=== PATIENT | male | born 1935 | race African-American/Black ===

== ENCOUNTER 2018-10-24 10:27 | Inpatient (IN) | payer MEDICARE, OTHER ==
[~2018-10-24] VITALS: Ht 167.6 cm; Wt 59.1 kg
[2018-10-24] MEDS ORDERED: SODIUM CHLORIDE 0.9% 1,000 ML IV ONE (11:00)
[2018-10-24 11:15] LABS: BASOPHILS % 0.3 % (0.0-2.0); EOSINOPHILS % 0.8 % (0.0-5.0); HEMATOCRIT. 39.2 % (42.0-52.0); HEMOGLOBIN. 13.3 g/dL (14.0-18.0); LYMPHOCYTES % 15.4 % (20.0-50.0); MEAN CORPUSCULAR HEMOGLOBIN 33.3 pg (28.0-32.0); MEAN CORPUSCULAR VOLUME 97.9 fL (80.0-94.0); MEAN PLATELET VOLUME 8.4 fl (7.4-10.4); MONOCYTES % 5.9 % (2.0-8.0); NEUTROPHILS % 77.6 % (40.0-76.0); PLATELET 150 x1000/uL (130-400); RED CELL DISTRIBUTION WIDTH 13.2 % (11.6-14.6)
[2018-10-24 11:18] LABS: CHLORIDE 106 mEq/L (98-107)
[2018-10-24 11:19] LABS: INR 1.1; PARTIAL THROMBOPLASTIN TIME 24.8 sec (23.4-31.0); PROTHROMBIN TIME 10.9 sec (9.6-11.0)
[2018-10-24 11:26] LABS: CREATINE KINASE 76 IU/L (39-308)
[2018-10-24 11:29] LABS: CREATINE KINASE MB FRACTION < 1.0 ng/mL (0.5-3.6)
[2018-10-24 13:49] LABS: CLARITY URINE CLEAR (CLEAR); COLOR URINE YELLOW (YELLOW); KETONES URINE NEGATIVE (NEGATIVE); LEUKOCYTE ESTERASE URINE TRACE (NEGATIVE); NITRITE URINE NEGATIVE (NEGATIVE); OCCULT BLOOD URINE NEGATIVE (NEGATIVE); PH URINE 7.5 (4.5-8.0); PROTEIN URINE NEGATIVE (NEGATIVE); SPECIFIC GRAVITY URINE 1.009 (1.005-1.030); UROBILINOGEN URINE 0.2 E.U./dL (0.2-1.0)
[2018-10-24] MEDS ORDERED: METRONIDAZOLE 500 MG PREMIX 100 ML IV ONE (14:00)
[2018-10-24] MEDS ORDERED: CEFTRIAXONE 1 G PREMIX 50 ML IV ONE (14:00)
[2018-10-24 20:20] VITALS: BP 137/61
[2018-10-24] MEDS ORDERED: ASPI-1079 PO (21:18)
[2018-10-24] MEDS ORDERED: SIMV20TA6 MT (21:18)
[2018-10-24] MEDS ORDERED: FINA5TAB11 PO (21:18)
[2018-10-24] MEDS ORDERED: ERGO400C MT (21:18)
[2018-10-24] MEDS ORDERED: DONE23TA3 MT (21:18)
[2018-10-24] MEDS ORDERED: MAGN400T39 MT (21:18)
[2018-10-24] MEDS ORDERED: MIRT15TA7 MT (21:18)
[2018-10-24 21:52] VITALS: BP 137/61
[2018-10-24 22:00] VITALS: BP 137/61
[2018-10-24] MEDS ORDERED: CLONIDINE 0.1MG TABLET PO PRN (22:30)
[2018-10-24] MEDS ORDERED: HYDROCODONE/ACETAMINOPHEN 5/325MG TABLET PO PRN (22:30)
[2018-10-24] MEDS ORDERED: IPRATROPIUM/ALBUTEROL 0.5-3(2.5)MG/3ML NEB INH PRN (22:30)
[2018-10-24] MEDS ORDERED: ACETAMINOPHEN 325MG TABLET PO PRN (22:30)
[2018-10-24] MEDS ORDERED: ONDANSETRON HCL 4MG/2ML INJ IV PRN (22:30)
[2018-10-25] VITALS: BP 103/53
[2018-10-25] MEDS: METRONIDAZOLE 500 MG PREMIX 100 ML IV SCH ×2 (00:07→04:51)
[2018-10-25 04:00] VITALS: BP 101/58
[2018-10-25] MEDS ORDERED: DEXTROSE 50% WATER 50ML SYRINGE IV PRN (05:15)
[2018-10-25] MEDS: BLOOD SUGAR DIAGNOSTIC STRIP TEST SCH ×2 (05:16→12:17)
[2018-10-25] MEDS: INSULIN LISPRO 100 UNITS/ML SUBCUT SCH ×2 (05:16→12:17)
[2018-10-25 08:00] VITALS: BP 104/58
[2018-10-25] MEDS ORDERED: ENOXAPARIN 40MG/0.4ML SYR SUBCUT SCH (09:00)
[2018-10-25] MEDS ORDERED: ENOXAPARIN 30MG/0.3ML SYR SUBCUT SCH (09:00)
[2018-10-25 09:22] LABS: BASOPHILS % 0.5 % (0.0-2.0); EOSINOPHILS % 1.5 % (0.0-5.0); HEMATOCRIT. 36.6 % (42.0-52.0); HEMOGLOBIN. 12.4 g/dL (14.0-18.0); LYMPHOCYTES % 21.3 % (20.0-50.0); MEAN CORPUSCULAR HEMOGLOBIN 33.1 pg (28.0-32.0); MEAN CORPUSCULAR VOLUME 97.9 fL (80.0-94.0); MEAN PLATELET VOLUME 8.5 fl (7.4-10.4); NEUTROPHILS % 69.7 % (40.0-76.0); PLATELET 141 x1000/uL (130-400); RED BLOOD CELL COUNT 3.74 mill/uL (4.7-6.1); RED CELL DISTRIBUTION WIDTH 13.3 % (11.6-14.6)
[2018-10-25 09:36] LABS: CHLORIDE 111 mEq/L (98-107)
[2018-10-25 09:45] LABS: LDL CHOLESTEROL 66 mg/dL (5-100)
[2018-10-25 09:46] LABS: CREATINE KINASE 102 IU/L (39-308); HDL CHOLESTEROL 61 mg/dL (40-59); T4 FREE 1.05 ng/dL (0.76-1.46)
[2018-10-25 12:00] VITALS: BP 105/60
[2018-10-25] MEDS ORDERED: MEDICATION NOT ON FORMULARY EA (Donepezil HCl 1 TAB) MT SCH (13:45)
[2018-10-25] MEDS ORDERED: TAMSULOSIN HCL 0.4MG SR CAPSULE PO NR (13:45)
[2018-10-25] MEDS ORDERED: MEDICATION NOT ON FORMULARY EA (Magnesium Oxide (Magnesium) 1 TAB) MT SCH (13:45)
[2018-10-25] MEDS ORDERED: ERGOCALCIFEROL MT SCH (13:45)
[2018-10-25] MEDS ORDERED: FINASTERIDE 5MG TABLET PO SCH (14:00)
[2018-10-25] MEDS ORDERED: ASPIRIN 81MG TABLET PO SCH (14:00)
[2018-10-25] MEDS ORDERED: MAGNESIUM OXIDE 400MG TABLET PO SCH (14:00)
[2018-10-25 14:48] VITALS: BP 105/60
[2018-10-25] MEDS ORDERED: CEFTRIAXONE 1 G PREMIX 50 ML IV SCH (15:00)
[2018-10-25 15:21] LABS: CREATINE KINASE 111 IU/L (39-308)
[2018-10-25] MEDS ORDERED: CHOLECALCIFEROL (VIT D3) 400 UNIT TABLET PO SCH (16:00)
[2018-10-25] MEDS ORDERED: MEDICATION NOT ON FORMULARY EA (Simvastatin 1 TAB) MT SCH (21:00)
[2018-10-25] MEDS ORDERED: MEDICATION NOT ON FORMULARY EA (Mirtazapine 1 TAB) MT SCH (21:00)
[2018-10-25] MEDS ORDERED: ATORVASTATIN CALCIUM 10MG TABLET PO SCH (21:00)
[2018-10-25] MEDS ORDERED: DONEPEZIL HCL 10MG TABLET PO SCH (21:00)
[2018-10-25] MEDS ORDERED: MIRTAZAPINE 15MG TABLET PO SCH (21:00)
== END 2018-10-25 16:30 | disposition home or self-care (01) | DRG 690 ==
LOC: ER 11:08 → 8WST 13:02 → EDBEDREQSVC 14:00 → EDBEDREQ 14:00 → ENRESERV 19:30
PROVIDERS: ADMIT Internal Medicine; ATTEND Internal Medicine
DX: N39.0 Urinary tract infection, site not specified (principal); E78.00 Pure hypercholesterolemia, unspecified; E78.5 Hyperlipidemia, unspecified; F03.90 Unspecified dementia, unspecified severity, without behavioral disturbance, psychotic disturbance, mood disturbance, and anxiety; I12.9 Hypertensive chronic kidney disease with stage 1 through stage 4 chronic kidney disease, or unspecified chronic kidney disease; E11.22 Type 2 diabetes mellitus with diabetic chronic kidney disease; D64.9 Anemia, unspecified; N18.9 Chronic kidney disease, unspecified; N40.0 Benign prostatic hyperplasia without lower urinary tract symptoms; Z79.899 Other long term (current) drug therapy; Z86.73 Personal history of transient ischemic attack (TIA), and cerebral infarction without residual deficits
CPT/HCPCS: 36415; 71045; 74176; 80061; 82550; 82553; 82962; 83735; 83880; 84439; 84443; 84484; 93005; 96361; 96365; 96367; 99285; J0696; J1650; J3490; J7030; J7040; J7050

== ENCOUNTER 2022-03-22 14:34 | Emergency (ER) | payer OTHER ==
[~2022-03-22] VITALS: Ht 172.7 cm; Wt 75.0 kg
[~2022-03-22 14:34] MED LIST: ASPI-1079 PO; DONE23TA3 MT; ERGO400C MT; FINA5TAB11 PO; MAGN400T39 MT; MIRT15TA7 MT; SIMV-43 MT
[2022-03-22] MEDS ORDERED: MECLIZINE 25MG TABLET PO ONE (15:45)
[2022-03-22 17:38] LABS: CLARITY URINE CLOUDY (CLEAR); COLOR URINE YELLOW (YELLOW); SPECIFIC GRAVITY URINE 1.025 (1.005-1.030)
[2022-03-22 17:39] LABS: KETONES URINE NEGATIVE (NEGATIVE); LEUKOCYTE ESTERASE URINE 1+ (NEGATIVE); NITRITE URINE NEGATIVE (NEGATIVE); OCCULT BLOOD URINE TRACE (NEGATIVE); PROTEIN URINE 1+ (NEGATIVE); UROBILINOGEN URINE 0.2 E.U./dL (0.2-1.0)
[2022-03-22 17:41] LABS: CHLORIDE 105 mEq/L (98-107)
[2022-03-22 17:45] LABS: BASOPHILS % 0.5 % (0.0-2.0); EOSINOPHILS % 1.7 % (0.0-5.0); HEMATOCRIT. 42.7 % (42.0-52.0); HEMOGLOBIN. 14.2 g/dL (14.0-18.0); LYMPHOCYTES % 28.4 % (20.0-50.0); MEAN CORPUSCULAR HEMOGLOBIN 33.3 pg (28.0-32.0); MEAN CORPUSCULAR VOLUME 100.4 fL (80.0-94.0); MEAN PLATELET VOLUME 8.8 fl (7.4-10.4); MONOCYTES % 7.5 % (2.0-8.0); NEUTROPHILS % 61.9 % (40.0-76.0); PLATELET 140 x1000/uL (130-400); RED BLOOD CELL COUNT 4.25 mill/uL (4.7-6.1); RED CELL DISTRIBUTION WIDTH 13.6 % (11.6-14.6)
[2022-03-22] MEDS ORDERED: CEFTRIAXONE 1 G PREMIX 50 ML IV NR (18:15)
[2022-03-22] MEDS ORDERED: SODIUM CHLORIDE 0.9% 1,000 ML IV ONE (18:15)
[2022-03-22 18:34] LABS: VITAMIN B12 SERUM 770 pg/mL (211-911)
[2022-03-22 19:39] VITALS: BP 140/83
[2022-03-22] MEDS ORDERED: CIPR500T5 MT (21:02)
== END 2022-03-22 21:20 | disposition home or self-care (01) ==
LOC: ER 14:34
DX: R42 Dizziness and giddiness (principal); N39.0 Urinary tract infection, site not specified; N17.9 Acute kidney failure, unspecified; F03.90 Unspecified dementia, unspecified severity, without behavioral disturbance, psychotic disturbance, mood disturbance, and anxiety; E11.9 Type 2 diabetes mellitus without complications; I10 Essential (primary) hypertension; Z79.899 Other long term (current) drug therapy
CPT/HCPCS: 36415; 70450; 71045; 80053; 81003; 82607; 84484; 85025; 87086; 93005; 96374; 99285; J0696; J8597